=== PATIENT | male | born 1945 | race Caucasian/White ===

== ENCOUNTER 2017-04-22 16:40 | Observation (INO) | payer OTHER ==
[~2017-04-22] VITALS: Ht 180.3 cm; Wt 134.8 kg
[~2017-04-22 16:40] MED LIST: AMITRIPTYLINE H25 MG; Ativan PO; BACITRACIN3.5 GM BOTH EYES; CARDURA8 MG; CARDURA8 MG PO; CIPRO500 MG PO; CLEOCIN300 MG PO; COQ-10100 MG PO; COUMADIN1 MG; COUMADIN3 MG PO; Cardura PO; Coumadin,Jantoven PO; DOXAZOSIN MESYLA4 MG; DOXAZOSIN MESYLA8 MG PO; EXCEDRIN MIGRA1 EAC3 PO; Excedrin PO; FINASTERIDE5 MG; FLAX SEED; FLECAINIDE ACET50 MG PO; Garlic PO; HYDROCODON-ACE1 EAC7; IBUPROFEN600 MG; IMITREX; IMITREX20 MG; IMITREX20 MG NS; IMITREX5 MG NS; LISINOPRIL10 MG PO; LOPRESSOR100 M1 PO; LORAZEPAM0.5 MG PO; LOVAZA1 GM; LOVENOX300 MG/3 M SC; Lopressor PO; Lovenox SC; METOPROLOL SUC100 MG; Motrin PO; OMEPRAZOLE40 M1; PRILOSEC40 MG PO; PROSCAR5 MG PO; Percocet 5/325,Endoc PO; Proscar PO; RED YEAST RICE600 MG PO; THERAGRAN1 TABLET PO; TOPROL XL25 MG PO; TOPROL XL50 MG PO; TUMS500 MG PO; TYLENOL EXTRA500 MG PO; Theragran PO; Tums,OsCal PO; VALSARTAN80 MG PO; VENLAFAXINE HC150 MG PO; VENLAFAXINE HCL75 M3; VENLAFAXINE225 MG PO; VITAMIN B-2100 MG PO; Venlafaxine PO; Viagra PO; XARELTO20 MG PO; [UNRECOGNIZED DRUG - OTHER]
[2017-04-22 17:38] LABS: HEMATOCRIT 34.9 % (38.0-50.0); MCH 22.4 PG (29.0-34.0); MCHC 30.4 G/DL (30.0-36.0); MCV 73.6 FL (86-99); PLATELET COUNT 338 K/uL (156-360); RBC DIS.WIDTH-CV 18.6 % (11.8-14.6); RBC DIS.WIDTH-SD 48.9 % (39-53); RED BLOOD COUNT 4.74 M/uL (4.00-5.50); WHITE BLOOD COUNT 7.6 K/uL (4.1-10.2)
[2017-04-22 17:44] LABS: CHLORIDE 112 mEq/L (99-109); POTASSIUM 4.1 mEq/L (3.7-5.4); SODIUM 140 mEq/L (136-147)
[2017-04-22 17:46] LABS: GLUCOSE 89 mg/dL (70-99); INTER. NORMALIZED RATIO 1.1; PROTHROMBIN TIME 12.2 SEC (10.2-12.9)
[2017-04-22 17:47] LABS: ANION GAP 4 MEQ/L (2-14)
[2017-04-22 17:49] LABS: PTT 32.3 SEC (25-37)
[2017-04-22 17:50] LABS: GFR ESTIMATE (CALCULATED) > 59 mL/min/
[2017-04-22 17:51] LABS: TROP-I INTERPRETATION NEGATIVE; TROPONIN-I < 0.01 ng/mL (0.0-0.30); UREA NITROGEN (BUN) 14 mg/dL (9-23)
[2017-04-22] MEDS ORDERED: VALSARTAN160 MG PO (19:29)
[2017-04-22] MEDS ORDERED: FLECAINIDE ACE100 MG PO (19:32)
[2017-04-22] MEDS ORDERED: FLAXSEED340 GM PO (19:43)
[2017-04-22] MEDS ORDERED: OSTEO BI-FLEX1 EAC1 PO (19:44)
[2017-04-22 22:08] LABS: TOTAL BILIRUBIN 0.6 mg/dL (0.0-1.0)
[2017-04-22 22:09] LABS: ALKALINE PHOSPHATASE 65 IU/L (3-129)
[2017-04-22 22:12] LABS: DIRECT BILIRUBIN 0.1 mg/dL (0.0-0.3)
[2017-04-22 22:16] VITALS: BP 135/86
[2017-04-23] VITALS: BP 142/90
[2017-04-23 00:11] LABS: TROP-I INTERPRETATION NEGATIVE; TROPONIN-I < 0.01 ng/mL (0.0-0.30)
[2017-04-23 04:13] VITALS: BP 135/92
[2017-04-23 05:50] LABS: ANION GAP 5 MEQ/L (2-14); CHLORIDE 110 MEQ/L (99-109); POTASSIUM 4.3 MEQ/L (3.7-5.4); SAMPLE HEMOLYSIS CHECK 0; SAMPLE ICTERIC CHECK 0; SAMPLE LIPEMIA CHECK 0; SODIUM 141 MEQ/L (136-147)
[2017-04-23 05:55] LABS: HEMATOCRIT 32.6 % (38.0-50.0); MCH 22.7 PG (29.0-34.0); MCHC 30.7 G/DL (30.0-36.0); MCV 73.9 FL (86-99); PLATELET COUNT 295 K/uL (156-360); RBC DIS.WIDTH-CV 18.6 % (11.8-14.6); RBC DIS.WIDTH-SD 49.3 % (39-53); RED BLOOD COUNT 4.41 M/uL (4.00-5.50); WHITE BLOOD COUNT 6.7 K/uL (4.1-10.2)
[2017-04-23 05:56] LABS: GFR ESTIMATE (CALCULATED) > 59 mL/min/; GLUCOSE 96 mg/dL (70-99); UREA NITROGEN (BUN) 14 mg/dL (9-23)
[2017-04-23 06:00] LABS: TROP-I INTERPRETATION NEGATIVE; TROPONIN-I < 0.01 ng/mL (0.0-0.30)
[2017-04-23 07:10] VITALS: BP 133/83
== END 2017-04-23 11:13 | disposition home or self-care (01) ==
LOC: EME 16:40 → EDOF 21:09 → 5WEST 21:09 → EDOF 21:09 → ENRESERV 21:15 → 5WEST 22:03
PROVIDERS: Hospitalist; Physician Assistant
DX: R07.89 Other chest pain (principal); R00.2 Palpitations; I48.0 Paroxysmal atrial fibrillation; R91.8 Other nonspecific abnormal finding of lung field; I10 Essential (primary) hypertension; E78.5 Hyperlipidemia, unspecified; Z68.41 Body mass index [BMI] 40.0-44.9, adult; E66.01 Morbid (severe) obesity due to excess calories; G47.33 Obstructive sleep apnea (adult) (pediatric); Z86.718 Personal history of other venous thrombosis and embolism; N20.0 Calculus of kidney; F41.9 Anxiety disorder, unspecified; F32.9 Major depressive disorder, single episode, unspecified; N40.0 Benign prostatic hyperplasia without lower urinary tract symptoms; D64.9 Anemia, unspecified; K21.9 Gastro-esophageal reflux disease without esophagitis; Z82.49 Family history of ischemic heart disease and other diseases of the circulatory system; Z83.3 Family history of diabetes mellitus; Z88.0 Allergy status to penicillin; Z88.2 Allergy status to sulfonamides; Z88.8 Allergy status to other drugs, medicaments and biological substances
CPT/HCPCS: 71020; 80048; 80076; 84484; 85027; 85610; 85730; 93005; 99281; 99285; G0378; J7030

== ENCOUNTER → 2017-12-27 | Outpatient (CLI) | payer OTHER ==
[~2017-12-27] MED LIST changes: +FLAXSEED340 GM PO; +FLECAINIDE ACE100 MG PO; +OSTEO BI-FLEX1 EAC1 PO; +VALSARTAN160 MG PO
== END | disposition home or self-care (01) ==
LOC: NUC 08:56
DX: E21.3 Hyperparathyroidism, unspecified (principal)
CPT/HCPCS: 78071; A9500; A9512